=== PATIENT | female | born 1970 | race African-American/Black ===

== ENCOUNTER 2019-06-13 11:03 | Emergency (ER) | payer SELFPAY ==
[2019-06-13 11:23] VITALS: BMI 37.1
[2019-06-13] MEDS ORDERED: LOSARTAN 50MG/HCTZ 12.5MG 1 TAB (FP) PO ONE (12:30)
[2019-06-13] MEDS ORDERED: ACETAMINOPHEN 1000 MG/100 ML VIAL (NON FORMULARY) IVPB ONE (12:31)
--- NOTE | 2019-06-13 12:34 | PDOC ---
Documentation entered by Wanda Rich SCRIBE, acting as scribe for Katelyn Valentine MD. Katelyn Valentine MD: This documentation has been prepared by the juanaeHilario Aiswarya, SCRIBE, under my direction and personally reviewed by me in its entirety. I confirm that the documentation accurately reflects all work, treatment, procedures, and medical decision making performed by me. History of Present Illness - General Chief Complaint: Headache Stated Complaint: HYPERTENSION Time Seen by Provider: 06/13/19 11:46 - History of Present Illness Initial Comments: 06/13/19 12:38 The patient is a 48 year old male, with a significant PMH of HTN, who presents to the emergency department with a headache that began this morning. The patient states she recently came from [place] and ran out of her blood pressure meds since last week. She reports constant headache is located to the right side and endorses associated symptoms of nausea , no vomiting.The patient denies chest pain, shortness of breath and dizziness. Denies fever, chills, vomit, diarrhea and constipation. Denies any change of vision. Allergies: NKDA Past surgical history: Small obstruction surgery and fibroids. Social history: None reported PCP: None reported Past History - Past Medical History Allergies/Adverse Reactions: Allergies Allergy/AdvReac Type Severity Reaction Status Date / Time No Known Allergies Allergy Verified 06/13/19 11:23 Home Medications: Ambulatory Orders Atorvastatin Ca [Lipitor] 10 mg PO HS 06/13/19 Losartan/Hydrochlorothiazide [Losartan-Hctz 50-12.5 mg Tab] 1 each PO DAILY #30 tablet 06/13/19 COPD: No HTN: Yes - Psycho Social/Smoking Cessation Hx Smoking History: Never smoked Hx Alcohol Use: No Drug/Substance Use Hx: No Review of Systems - Review of Systems Able to Perform ROS?: Yes Comments:: 06/13/19 12:39 GENERAL/CONSTITUTIONAL: No fever or chills. No weakness. HEAD, EYES, EARS, NOSE AND THROAT: No change in vision. No ear pain or discharge. No sore throat. CARDIOVASCULAR: No chest pain or shortness of breath. RESPIRATORY: No cough, wheezing, or hemoptysis. GASTROINTESTINAL:+nausea. No vomiting, diarrhea or constipation. GENITOURINARY: No dysuria, frequency, or change in urination. MUSCULOSKELETAL: No joint or muscle swelling or pain. No neck or back pain. SKIN: No rash NEUROLOGIC:+Headache. No vertigo, loss of consciousness, or change in strength/ sensation. ENDOCRINE: No increased thirst. No abnormal weight change. HEMATOLOGIC/LYMPHATIC: No anemia, easy bleeding, or history of blood clots. ALLERGIC/IMMUNOLOGIC: No hives or skin allergy. *Physical Exam - Vital Signs Last Vital Signs Temp Pulse Resp BP Pulse Ox 97.5 F L 68 16 149/88 94 L 06/13/19 11:20 06/13/19 11:20 06/13/19 11:20 06/13/19 11:20 06/13/19 11:20 - Physical Exam Comments: 06/13/19 12:31 awake alert lungs clear bilat heart rrr no mrg abd soft nt nd ext wwp no edema no calf tenderness. no temporal art tenderness. no sinus tenderness. nuero alert oriented x 3. 5/5 all four ext. speech clear. ED Treatment Course - LABORATORY CBC & Chemistry Diagram: 06/13/19 13:18 06/13/19 13:18 Medical Decision Making - Medical Decision Making Medical Decision Makin yo F h/o HTN here from [place]. been here one week planing on residing here. c/o headache. right sided noted on awakening. constant dull. no vision changes. no f/c no head trauma. has not taken her bp meds for one week bc ran out. does not have a doctor here in [place] yet. plan will send basic labs cbc cmp r/o anemia, or electrolyte abnormality. tylenol will give home dose bp meds today. pt head ct negative for acute pathology. labs unremarkable. awaiting cxr. will [facility] with [facility]. Discharge - Discharge Information Problems reviewed: Yes Clinical Impression/Diagnosis: Headache, Hypertension Condition: Improved Disposition: HOME - Admission No - Additional Discharge Information Prescriptions: Losartan/Hydrochlorothiazide [Losartan-Hctz 50-12.5 mg Tab] 1 each PO DAILY #30 tablet - Follow up/Referral Referrals: Herb Arriaza MD [Staff Physician] - - Patient Discharge Instructions Patient Printed Discharge Instructions: Tension Headache, Treatments for High Blood Pressure: More Than Just Taking a Pill Additional Instructions: you need to take you blood pressure medication daily . you are taking Losartan/ Hydrochlorothiazide 50mg /12.5mg . a prescription has been sent to the [facility] [address] [facility]. your [address] scan of the head is normal. your labs are all normal also. you need to follow up with a primary doctor . see referral for dr paz. call to confirm appointment. return for any problems or concerns. - Post Discharge Activity
[2019-06-13] MEDS ORDERED: ACETAMINOPHEN INJECTION 100 ML IVPB ONE (12:52)
[2019-06-13 13:31] LABS: BASO % 0.6 % (0-2.0); EOS % 3.5 % (0-4.5); HEMATOCRIT 41.7 % (32.4-45.2); HEMOGLOBIN 13.5 GM/dL (10.7-15.3); LYMPH % 24.3 % (8-40); MCH 27.6 pg (25.7-33.7); MCHC 32.4 g/dl (32.0-36.0); MEAN CELL VOLUME 85.3 fl (80-96); MEAN PLT VOLUME 8.6 fl (7.5-11.1); MONO % 6.8 % (3.8-10.2); NEUT % 64.8 % (42.8-82.8); PLATELET COUNT 179 K/MM3 (134-434); RBC 4.89 M/mm3 (3.60-5.2); WHITE BLOOD COUNT 6.4 K/mm3 (4.0-10.0)
[2019-06-13 14:03] LABS: ALBUMIN 3.5 g/dl (3.4-5.0); BILIRUBIN,TOTAL 0.4 mg/dL (0.2-1); CALCIUM 10.6 mg/dL (8.5-10.1); CREATININE 1.2 mg/dL (0.55-1.3); TOT PROT 6.6 g/dl (6.4-8.2)
[2019-06-13 17:17] VITALS: BP 157/72; PULSE 61; TEMP 98
== END 2019-06-13 17:21 | disposition home or self-care (01) ==
LOC: JER 11:03
PROC: 3E033NZ Introduction of Analgesics, Hypnotics, Sedatives into Peripheral Vein, Percutaneous Approach (ICD-10-PCS; principal; 2019-06-13)
DX: I10 Essential (primary) hypertension (principal)
CPT/HCPCS: 36415; 70450-TC; 71046-TC-FY; 80053; 85025; 99283-25; J0131